=== PATIENT | male | born 1945 | race Caucasian/White ===

== ENCOUNTER 2018-06-30 11:17 | Day surgery (SDC) | payer OTHER ==
[2018-06-30 11:44] VITALS: PULSE 73
[2018-06-30] MEDS: PHENYLEPHRINE HCL 10% OPHTHAL SOL ONE ×3 (11:48→11:54)
[2018-06-30] MEDS: TROPICAMIDE 1% OPHTH SOL ONE ×3 (11:48→11:54)
[2018-06-30] MEDS: CYCLOPENTOLATE 1% SOL ONE ×3 (11:48→11:54)
[2018-06-30] MEDS ORDERED: MOXIFLOXACIN-HOME SOL RIGHTEYE ONE ×2 (11:49→11:52)
[2018-06-30] MEDS ORDERED: KETOROLAC/HOME 0.5% SOL RIGHTEYE ONE ×3 (11:49→11:55)
[2018-06-30] MEDS: TETRACAINE HCL 0.5 % 1 DROP SOL ONE ×2 (11:55→13:36)
[2018-06-30] MEDS ORDERED: MIDAZOLAM 2 MG/2 ML SOL ONE (12:47)
[2018-06-30] MEDS ORDERED: FENTANYL 100MCG/2ML SOL ONE (12:47)
[2018-06-30] MEDS ORDERED: POVIDONE IODINE 5% SOL ONE (13:28)
[2018-06-30] MEDS ORDERED: LIDOCAINE HCL 2% MPF 10 ML SOL ONE (13:28)
[2018-06-30] MEDS: BSS W/ 0.5 MG P.F. EPI 1 BOTTLE ONE ×2 (13:39→13:42)
[2018-06-30] MEDS ORDERED: ACETAZOLAMIDE 250 MG PO ONE (13:55)
[2018-06-30] MEDS ORDERED: ACETAZOLAMIDE 500 MG CER PO ONE (14:05)
[2018-06-30 14:15] VITALS: BP 115/79; RESP 20; TEMP 7.9; O2SAT 99
== END 2018-06-30 14:23 | disposition home or self-care (01) | DRG 125 ==
LOC: SURG 11:17
PROVIDERS: ATTEND Ophthalmology
DX: H25.89 Other age-related cataract (principal)
CPT/HCPCS: J2250; J3010; A9270-GY

== ENCOUNTER 2018-07-28 11:43 | Day surgery (SDC) | payer OTHER ==
[~2018-07-28 11:43] MED LIST: MIDAZOLAM 2 MG/2 ML SOL ONE
[2018-07-28 12:07] VITALS: TEMP 98.4
[2018-07-28] MEDS ORDERED: KETOROLAC/HOME 0.5% SOL LEFTEYE ONE ×3 (12:13→12:22)
[2018-07-28] MEDS: CYCLOPENTOLATE 1% SOL ONE ×3 (12:13→12:21)
[2018-07-28] MEDS: PHENYLEPHRINE HCL 10% OPHTHAL SOL ONE ×3 (12:13→12:19)
[2018-07-28] MEDS: TROPICAMIDE 1% OPHTH SOL ONE ×3 (12:13→12:21)
[2018-07-28] MEDS ORDERED: MOXIFLOXACIN HCL OPHTH 5 MG/ML SOL LEFTEYE ONE (12:14)
[2018-07-28] MEDS ORDERED: MOXIFLOXACIN-HOME SOL LEFTEYE ONE (12:17)
[2018-07-28] MEDS: TETRACAINE HCL 0.5 % 1 DROP SOL ONE ×2 (12:22→13:17)
[2018-07-28] MEDS ORDERED: BSS W/ 0.5 MG P.F. EPI 1 BOTTLE ONE (13:12)
[2018-07-28] MEDS ORDERED: POVIDONE IODINE 5% SOL ONE (13:12)
[2018-07-28] MEDS ORDERED: LIDOCAINE HCL 2% MPF 10 ML SOL ONE (13:12)
[2018-07-28] MEDS ORDERED: ACETAZOLAMIDE 250 MG PO ONE ×2 (13:24→13:57)
[2018-07-28] MEDS ORDERED: BSS IR ONE (13:39)
[2018-07-28 13:57] VITALS: BP 138/78; PULSE 84; RESP 20; O2SAT 97
== END 2018-07-28 14:12 | disposition home or self-care (01) | DRG 125 ==
LOC: SURG 11:43
PROVIDERS: ATTEND Ophthalmology
DX: H25.89 Other age-related cataract (principal)
CPT/HCPCS: J2250; A9270-GY